=== PATIENT | female | born 2000 | race Caucasian/White ===

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

== ENCOUNTER 2018-10-01 06:36 | Emergency (ER) | payer MEDICAID ==
[~2018-10-01] VITALS: Ht 154.9 cm; Wt 56.2 kg
[2018-10-01 06:58] VITALS: BP_SYST 112
[2018-10-01] MEDS ORDERED: ALBMDI INH (07:02)
[2018-10-01 08:52] LABS: BASOPHILS % (AUTO) 0.5 % (0.0-2.0); EOSINOPHILS # (AUTO) 0.2 K/uL (0.0-0.4); EOSINOPHILS % (AUTO) 2.8 % (0.0-4.0); HEMOGLOBIN 13.3 g/dL (12.0-16.0); LYMPHOCYTES # (AUTO) 1.4 K/uL (1.0-5.5); LYMPHOCYTES % (AUTO) 22.4 % (20.5-51.5); MEAN CORPUSCULAR HEMOGLOBIN 29 pg (27-31); MEAN CORPUSCULAR HGB CONC 33 % (32-36); MEAN CORPUSCULAR VOLUME 88 fL (79.0-98.0); MONOCYTES # (AUTO) 0.5 K/uL (0.0-1.0); MONOCYTES % (AUTO) 7.5 % (1.7-9.3); NEUTROPHILS # (AUTO) 4.1 K/uL (1.8-7.7); NEUTROPHILS % (AUTO) 66.8 % (40.0-70.0); PLATELET COUNT (AUTO) 268 K/uL (130-430); RED BLOOD CELL COUNT(AUTO) 4.55 MIL/uL (4.2-6.2); RED CELL DISTRIBUTION WIDTH 13.2 % (9.0-15.0); WHITE BLOOD COUNT (AUTO) 6.1 K/uL (4.5-11.0)
[2018-10-01 09:00] LABS: CALCIUM 9.2 mg/dL (8.4-11.0); CREATININE 0.59 mg/dL (0.55-1.30); POTASSIUM 4.2 mmol/L (3.5-5.1)
[2018-10-01 09:11] LABS: ALBUMIN 4.1 g/dL (3.4-4.8); TOTAL BILIRUBIN 0.5 mg/dL (0.0-1.0)
[2018-10-01 09:54] VITALS: BP_SYST 127
== END 2018-10-01 09:50 | disposition home or self-care (01) ==
LOC: SED 06:36
DX: O46.91 Antepartum hemorrhage, unspecified, first trimester (principal); F41.9 Anxiety disorder, unspecified; J45.909 Unspecified asthma, uncomplicated; Z3A.01 Less than 8 weeks gestation of pregnancy
CPT/HCPCS: 36415; 80053; 81002; 81025; 84702-TC; 85025; 99283

== ENCOUNTER 2018-11-20 22:08 | Emergency (ER) | payer MEDICAID, OTHER ==
[~2018-11-20] VITALS: Ht 154.9 cm; Wt 54.4 kg
[~2018-11-20 22:08] MED LIST: ALBMDI INH
[2018-11-20 22:20] VITALS: BP_SYST 104
[2018-11-20] MEDS ORDERED: ONDANSETRON 4 MG ODT TAB PO ONE (22:30)
[2018-11-20] MEDS ORDERED: KETOROLAC TROMETHAMINE 60 MG/2 ML VIAL IM ONE (22:30)
--- NOTE | 2018-11-20 22:40 | NUR ---
Patient to ER bed 1 to gown for evaluation. Side rails up.
--- NOTE | 2018-11-20 22:45 | NUR ---
Pt C/O abdominal pain, nausea and urinary burning on and off for 3 days. Pt is LMP 09/01/18. Denies any vomiting, fever, shortness of breath, fever, or any other complaints at this time. Will continue to monitor.
--- NOTE | 2018-11-20 23:05 | NUR ---
ER Dr. Alfaro at bedside examining patient.
[2018-11-20 23:23] VITALS: BP_SYST 104
--- NOTE | 2018-11-20 23:25 | NUR ---
Patient given written and verbal discharge instructions and verbalizes understanding. ER MD discussed with patient the results and treatment provided. Patient in stable condition. ID arm band removed. Rx of Zofran and Macrobid given. Patient educated on pain management and to follow up with PMD. Pain Scale 0. Opportunity for questions provided and answered. Medication side effect fact sheet provided.
== END 2018-11-20 23:20 | disposition home or self-care (01) ==
LOC: SED 22:08
DX: O23.41 Unspecified infection of urinary tract in pregnancy, first trimester (principal); Z3A.10 10 weeks gestation of pregnancy
CPT/HCPCS: 99283; Q0162

== ENCOUNTER 2020-05-23 15:39 | Emergency (ER) | payer OTHER, MEDICAID ==
[~2020-05-23] VITALS: Ht 154.9 cm; Wt 57.6 kg
[2020-05-23 15:40] VITALS: BP_SYST 113
[2020-05-23] MEDS ORDERED: IBUPROFEN 600 MG TABLET PO ONE (16:15)
[2020-05-23] MEDS ORDERED: ACETAMINOPHEN 500 MG TABLET PO ONE (16:15)
[2020-05-23 16:38] VITALS: BP_SYST 113
== END 2020-05-23 16:40 | disposition home or self-care (01) ==
LOC: SED 15:39
DX: S06.0X0A Concussion without loss of consciousness, initial encounter (principal); J45.909 Unspecified asthma, uncomplicated; F41.9 Anxiety disorder, unspecified; V49.49XA Driver injured in collision with other motor vehicles in traffic accident, initial encounter; Y93.89 Activity, other specified; Y92.413 State road as the place of occurrence of the external cause; Y99.8 Other external cause status
CPT/HCPCS: 81002; 81025; 99283

== ENCOUNTER 2020-06-09 12:52 | Emergency (ER) | payer MEDICAID, OTHER ==
[~2020-06-09] VITALS: Ht 154.9 cm; Wt 56.2 kg
[2020-06-09 13:00] VITALS: BP_SYST 141
--- NOTE | 2020-06-09 13:00 | NUR ---
Patient triaged and placed in waiting room. VSS and patient appears in no acute distress at this time. Awaiting available bed, and MD notified of need for MSE.
[2020-06-09 13:34] LABS: BASOPHILS % (AUTO) 0.3 % (0.0-2.0); EOSINOPHILS % (AUTO) 0.5 % (0.0-4.0); LYMPHOCYTES # (AUTO) 1.2 K/uL (1.0-5.5); LYMPHOCYTES % (AUTO) 16.9 % (20.5-51.5); MONOCYTES # (AUTO) 0.4 K/uL (0.0-1.0); MONOCYTES % (AUTO) 5.3 % (1.7-9.3); NEUTROPHILS # (AUTO) 5.7 K/uL (1.8-7.7)
[2020-06-09 13:40] LABS: HEMATOCRIT 40.4 % (36-48); HEMOGLOBIN 13.5 g/dL (12.0-16.0); MEAN CORPUSCULAR HEMOGLOBIN 29 pg (27-31); MEAN CORPUSCULAR HGB CONC 33 % (32-36); MEAN CORPUSCULAR VOLUME 86 fL (79.0-98.0); PLATELET COUNT (AUTO) 230 K/uL (130-430); RED BLOOD CELL COUNT(AUTO) 4.72 MIL/uL (4.2-6.2); WHITE BLOOD COUNT (AUTO) 7.3 K/uL (4.8-10.8)
[2020-06-09 14:11] LABS: CALCIUM 9.1 mg/dL (8.4-11.0); CREATININE 0.72 mg/dL (0.55-1.30); POTASSIUM 4.7 mmol/L (3.5-5.1)
[2020-06-09 14:34] LABS: PROTHROMBIN TIME 10.4 SECS (9.5-12.5)
--- NOTE | 2020-06-09 16:22 | NUR ---
Patient woke up this morning around 1000 with cramping and bloody urine. Patient reports she is , but does not know how far along she is, she estimates 4-5 weeks. Patient denies cramping at this time, only having it initially this morning.
--- NOTE | 2020-06-09 16:24 | NUR ---
Urine sample cup provided, patient reports she is unable to provide a sample at this time.
--- NOTE | 2020-06-09 16:49 | NUR ---
ER Dr. Hancock in triage examining patient.
[2020-06-09] MEDS: RHO(D) IMMUNE GLOBULIN/MALTOSE 1500 UNITS/1.3 ML (WINHRO) INJ ONE (18:16)
[2020-06-09 18:33] VITALS: BP_SYST 113
--- NOTE | 2020-06-09 18:33 | NUR ---
Patient given written and verbal discharge instructions and verbalizes understanding. ER MD discussed with patient the results and treatment provided. Patient in stable condition. ID arm band removed. Patient educated on pain management and to follow up with PMD. Pain Scale 0/10. Opportunity for questions provided and answered. Medication side effect fact sheet provided.
[2020-06-09 20:52] LABS: BILIRUBIN,URINE NEGATIVE (NEGATIVE); BLOOD, URINE NEGATIVE (NEGATIVE); CLARITY/URINE CLEAR (CLEAR); COLOR,URINE YELLOW (YELLOW); GLUCOSE,URINE TRACE (NEGATIVE); KETONES,URINE NEGATIVE (NEGATIVE); LEUKOCYTE ESTERASE ,URINE NEGATIVE (NEGATIVE); NITRITE, URINE NEGATIVE (NEGATIVE); PROTEIN URINE NEGATIVE (NEGATIVE)
== END 2020-06-09 18:33 | disposition home or self-care (01) ==
LOC: SED 12:52
DX: O20.0 Threatened abortion (principal); Z3A.01 Less than 8 weeks gestation of pregnancy
CPT/HCPCS: 36415; 76801; 76817; 80048; 81003; 84702; 85025; 85610; 86886; 86900; 86901; 96372; 99284; J2790; J2792

== ENCOUNTER 2020-09-24 23:31 | Emergency (ER) | payer OTHER ==
[~2020-09-24] VITALS: Ht 154.9 cm; Wt 54.4 kg
[2020-09-24 23:31] VITALS: BP_SYST 128
--- NOTE | 2020-09-24 23:31 | NUR ---
Patient to ER bed 03 to gown for evaluation. Side rails up. Report given to OK Phillips
--- NOTE | 2020-09-24 23:39 | NUR ---
Patient complaining of urinary frequency and pressure x 2 days. [id number] states she is 21 weeks . LMP 04/24/20. Patient was cleared by OB.
[2020-09-24 23:50] LABS: BILIRUBIN,URINE NEGATIVE (NEGATIVE); BLOOD, URINE 3+ (NEGATIVE); COLOR,URINE YELLOW (YELLOW); GLUCOSE,URINE NEGATIVE (NEGATIVE); KETONES,URINE NEGATIVE (NEGATIVE); LEUKOCYTE ESTERASE ,URINE 3+ (NEGATIVE); NITRITE, URINE NEGATIVE (NEGATIVE); PH,URINE 6.5 (5.0-8.0); PROTEIN URINE 1+ (NEGATIVE)
[2020-09-24 23:52] LABS: CLARITY/URINE HAZY (CLEAR)
[2020-09-25 00:20] LABS: BACTERIA,URINE MANY /HPF (None Seen); RBC,URINE 20-50 /HPF (0-3); WBC,URINE 20-50 /HPF (0-3)
--- NOTE | 2020-09-25 00:28 | NUR ---
ER Dr. Caceres at bedside examining patient.
[2020-09-25] MEDS ORDERED: cephALEXin 500 MG CAPSULE PO ONE (00:30)
[2020-09-25] MEDS ORDERED: CEPH250C PO (00:43)
[2020-09-25 01:10] VITALS: BP_SYST 112
--- NOTE | 2020-09-25 01:10 | NUR ---
Patient given written and verbal discharge instructions and verbalizes understanding. ER MD discussed with patient the results and treatment provided. Patient in stable condition. ID arm band removed. Rx of keflex given. Patient educated on pain management and to follow up with PMD. Pain Scale 0/10. Opportunity for questions provided and answered. Medication side effect fact sheet provided.
== END 2020-09-25 01:10 | disposition home or self-care (01) ==
LOC: SED 23:31
DX: O23.42 Unspecified infection of urinary tract in pregnancy, second trimester (principal); Z3A.23 23 weeks gestation of pregnancy
CPT/HCPCS: 81000-TC; 87086; 99283

== ENCOUNTER 2021-04-07 10:17 | Emergency (ER) | payer MEDICAID, OTHER ==
[~2021-04-07] VITALS: Ht 154.9 cm; Wt 58.5 kg
[~2021-04-07 10:17] MED LIST changes: +CEPH250C PO
[2021-04-07 10:28] VITALS: BP_SYST 131
[2021-04-07 11:00] LABS: BASOPHILS % (AUTO) 0.5 % (0.0-2.0); EOSINOPHILS # (AUTO) 0.1 K/uL (0.0-0.4); EOSINOPHILS % (AUTO) 0.9 % (0.0-4.0); HEMATOCRIT 36.5 % (36-48); HEMOGLOBIN 12.1 g/dL (12.0-16.0); LYMPHOCYTES # (AUTO) 1.4 K/uL (1.0-5.5); LYMPHOCYTES % (AUTO) 21.4 % (20.5-51.5); MEAN CORPUSCULAR HEMOGLOBIN 26 pg (27-31); MEAN CORPUSCULAR HGB CONC 33 % (32-36); MEAN CORPUSCULAR VOLUME 80 fL (79.0-98.0); MONOCYTES # (AUTO) 0.3 K/uL (0.0-1.0); MONOCYTES % (AUTO) 4.9 % (1.7-9.3); NEUTROPHILS # (AUTO) 4.7 K/uL (1.8-7.7); NEUTROPHILS % (AUTO) 72.3 % (40.0-70.0); PLATELET COUNT (AUTO) 181 K/uL (130-430); RED BLOOD CELL COUNT(AUTO) 4.57 MIL/uL (4.2-6.2); RED CELL DISTRIBUTION WIDTH 20.9 % (9.0-15.0); WHITE BLOOD COUNT (AUTO) 6.5 K/uL (4.8-10.8)
[2021-04-07] MEDS ORDERED: MEDR10TA3 PO (11:07)
[2021-04-07 11:21] VITALS: BP_SYST 131
== END 2021-04-07 11:21 | disposition home or self-care (01) ==
LOC: SED 10:17
DX: N92.0 Excessive and frequent menstruation with regular cycle (principal); J45.909 Unspecified asthma, uncomplicated; Z79.899 Other long term (current) drug therapy
CPT/HCPCS: 36415; 81025; 85025; 99283